=== PATIENT | male | born 1955 | race Caucasian/White ===

== ENCOUNTER 2017-07-27 09:40 | Emergency (ER) | payer MEDICAID ==
[~2017-07-27] VITALS: Ht 182.9 cm; Wt 68.0 kg
[~2017-07-27 09:40] MED LIST: ASPI-621 PO; ATOR20TA9 PO; CIPR500T87 PO; CLOP75TA PO; METO25TA35 PO/NG; TRAM50TA2 PO
[2017-07-27 09:42] VITALS: BP 136/92
[2017-07-27] MEDS ORDERED: DEXAMETHASONE 4 MG TABLET PO ONE (10:00)
[2017-07-27 10:28] LABS: HEMATOCRIT 46.6 % (39.2-51.8); HEMOGLOBIN 15.8 g/dL (13.7-18.0)
[2017-07-27 10:40] LABS: BLOOD UREA NITROGEN 9 mg/dL (7-18)
[2017-07-27] MEDS ORDERED: GABA300C10 PO (10:50)
[2017-07-27] MEDS ORDERED: CLOP75TA52 PO (10:50)
[2017-07-27] MEDS ORDERED: CARV12.543 PO (10:50)
[2017-07-27] MEDS ORDERED: LISI5TAB7 PO (10:50)
[2017-07-27] MEDS ORDERED: AMIT10TA PO (10:50)
[2017-07-27] MEDS ORDERED: OMNIPAQUE 350 MG/ML, 75ML BOTTLE ONE (11:13)
[2017-07-27] MEDS ORDERED: DEXAMETHASONE 4 MG TABLET ONE (11:19)
[2017-07-27] MEDS ORDERED: LIDOCAINE 1%, 10ML INFIL ONE (12:00)
== END 2017-07-27 12:41 | disposition home or self-care (01) ==
LOC: ED 12:00
DX: T78.3XXA Angioneurotic edema, initial encounter (principal); T46.4X5A Adverse effect of angiotensin-converting-enzyme inhibitors, initial encounter; I10 Essential (primary) hypertension; Y92.098 Other place in other non-institutional residence as the place of occurrence of the external cause
CPT/HCPCS: 36415; 70487; 80048; 85025; 99285; J3490; Q9967

== ENCOUNTER 2018-08-19 11:55 | Inpatient (IN) | payer MEDICAID ==
[~2018-08-19] VITALS: Ht 182.9 cm; Wt 66.5 kg
[~2018-08-19 11:55] MED LIST changes: +AMIT10TA PO; +CARV12.543 PO; +CLOP75TA52 PO; +GABA300C10 PO; +LISI5TAB7 PO
[2018-08-19] MEDS ORDERED: MORPHINE SULFATE 4 MG/ML, 1ML IVPush PRN (12:30)
[2018-08-19] MEDS ORDERED: ONDANSETRON 2MG/ML, 2ML IVPush ONE (12:30)
[2018-08-19 12:54] LABS: BASOPHILS # (AUTO) 0.02 x10^3/uL (0-0.1); BASOPHILS % (AUTO) 0 % (0-1); EOSINOPHILS # (AUTO) 0.27 x10^3/uL (0-0.4); EOSINOPHILS % (AUTO) 4 % (1-7); LYMPHOCYTES # (AUTO) 1.37 x10^3/uL (1-3.4); LYMPHOCYTES % (AUTO) 19 % (22-44); MD NO; MEAN CORPUSCULAR HEMOGLOBIN 32.7 pg (27.5-34.5); MEAN CORPUSCULAR HGB CONC 33.9 g/dL (33.2-36.2); MEAN CORPUSCULAR VOLUME 96.3 fL (81-97); MEAN PLATELET VOLUME 7.9 fL (7.4-10.4); MONOCYTES # (AUTO) 0.58 x10^3/uL (0.2-0.8); MONOCYTES % (AUTO) 8 % (2-9); NEUTROPHILS % (AUTO) 70 % (42-75); PLATELET COUNT 299 x10^3/uL (130-400); RED BLOOD COUNT 3.92 x10^6/uL (4.38-5.82); RED CELL DISTRIBUTION WIDTH 14.5 % (9.4-14.8)
[2018-08-19] MEDS ORDERED: MORPHINE SULFATE 4 MG/ML, 1ML ONE (12:58)
[2018-08-19] MEDS ORDERED: ONDANSETRON 2MG/ML, 2ML ONE (12:58)
[2018-08-19 13:03] LABS: ALANINE AMINOTRANSFERASE 25 U/L (12-78); ALBUMIN 3.7 g/dL (3.4-5.0); ANION GAP 8 mmol/L (5-15); CALCIUM 9.1 mg/dL (8.5-10.1); CHLORIDE 103 mmol/L (98-107); CREATININE 0.95 mg/dL (0.7-1.3)
[2018-08-19 13:07] LABS: ALKALINE PHOSPHATASE 82 U/L (45-117); BILIRUBIN,TOTAL 0.3 mg/dL (0.2-1.0); TOTAL PROTEIN 6.8 g/dL (6.4-8.2); TROPONIN I < 0.015 ng/mL (0.000-0.045)
[2018-08-19] MEDS ORDERED: methylPREDNISolone SOD SUCC 125 MG/2 ML ONE (13:24)
[2018-08-19] MEDS ORDERED: KETOROLAC 30 MG/1 ML ONE (13:24)
[2018-08-19] MEDS ORDERED: KETOROLAC 60 MG/2 ML IVPush ONE (13:30)
[2018-08-19] MEDS ORDERED: methylPREDNISolone SOD SUCC 125 MG/2 ML IVPush ONE (13:30)
[2018-08-19] MEDS ORDERED: ASPI-515 PO (14:55)
[2018-08-19] MEDS ORDERED: HYDR12.53 PO (14:57)
[2018-08-19] MEDS ORDERED: LOSA25TA6 PO (14:57)
[2018-08-19 15:06] LABS: TROPONIN I < 0.015 ng/mL (0.000-0.045)
[2018-08-19] MEDS ORDERED: DOCUSATE 100 MG CAPSULE PO PRN (17:00)
[2018-08-19] MEDS ORDERED: ONDANSETRON ODT 4 MG PO PRN (17:00)
[2018-08-19] MEDS: ENOXAPARIN 40 MG/0.4 ML SQ SCH (17:00)
[2018-08-19] MEDS ORDERED: NITROGLYCERIN 0.4 MG/SPRAY SL PRN (17:00)
[2018-08-19] MEDS ORDERED: methylPREDNISolone 4mg DOSE PACK PO SCH (17:00)
[2018-08-19] MEDS ORDERED: NITROGLYCERIN 0.4 MG BOTTLE (25 TABS) SL PRN (17:00)
[2018-08-19 17:34] VITALS: BP 158/85
[2018-08-19] MEDS ORDERED: methylPREDNISolone 4mg DOSE PACK ONE (17:46)
[2018-08-19] MEDS: METHOCARBAMOL 500 MG TABLET PO SCH (17:59)
[2018-08-19] MEDS: LIDODERM 5% PATCH TD SCH (17:59)
[2018-08-19 18:02] LABS: THYROID STIMULATING HORMONE 1.45 mIU/L (0.358-3.740)
[2018-08-19 18:03] LABS: HEMOGLOBIN A1C 5.7 % (4.2-6.3)
[2018-08-19 18:52] LABS: TROPONIN I < 0.015 ng/mL (0.000-0.045)
[2018-08-19 20:21] VITALS: BP 131/81
[2018-08-19] MEDS: GABAPENTIN 300 MG CAPSULE PO SCH (21:25)
[2018-08-19] MEDS: CARVEDILOL 12.5 MG TABLET PO SCH (21:25)
[2018-08-19] MEDS: ATORVASTATIN 20 MG TABLET PO SCH (21:36)
[2018-08-19] MEDS: ACETAMINOPHEN 325 MG TABLET PO PRN (21:45)
[2018-08-19] MEDS ORDERED: KETOROLAC 30 MG/1 ML IVPush PRN (23:00)
[2018-08-20] MEDS: METHOCARBAMOL 500 MG TABLET PO SCH ×3 (00:58→16:55)
[2018-08-20 01:00] VITALS: BP 117/71
[2018-08-20 05:15] LABS: BASOPHILS # (AUTO) 0.07 x10^3/uL (0-0.1); BASOPHILS % (AUTO) 1 % (0-1); EOSINOPHILS % (AUTO) 0 % (1-7); LYMPHOCYTES # (AUTO) 0.81 x10^3/uL (1-3.4); LYMPHOCYTES % (AUTO) 6 % (22-44); MD NO; MEAN CORPUSCULAR HEMOGLOBIN 33.1 pg (27.5-34.5); MEAN CORPUSCULAR HGB CONC 34.3 g/dL (33.2-36.2); MEAN CORPUSCULAR VOLUME 96.6 fL (81-97); MEAN PLATELET VOLUME 7.9 fL (7.4-10.4); MONOCYTES # (AUTO) 0.46 x10^3/uL (0.2-0.8); MONOCYTES % (AUTO) 4 % (2-9); NEUTROPHILS # (AUTO) 11.97 x10^3/uL (1.8-6.8); NEUTROPHILS % (AUTO) 90 % (42-75); PLATELET COUNT 270 x10^3/uL (130-400); RED BLOOD COUNT 3.69 x10^6/uL (4.38-5.82); RED CELL DISTRIBUTION WIDTH 14.3 % (9.4-14.8)
[2018-08-20 05:21] LABS: ANION GAP 7 mmol/L (5-15); CALCIUM 8.6 mg/dL (8.5-10.1); CHLORIDE 104 mmol/L (98-107); CREATININE 1.29 mg/dL (0.7-1.3)
[2018-08-20 05:24] LABS: CHOL/HDL RATIO 2.2; CHOLESTEROL, TOTAL 145 mg/dL (140-239); HDL CHOL % 46 % (26-37); HDL CHOLESTEROL (DIRECT) 66 mg/dL (40-60); LDL CHOLESTEROL,CALCULATED 65 mg/dL (54-169); TRIGLYCERIDES 69 mg/dL (50-200); VLDL CHOLESTEROL 14 mg/dL (0-25)
[2018-08-20] MEDS ORDERED: ASPIRIN 325 MG TABLET EC PO SCH (06:00)
[2018-08-20 07:48] VITALS: BP 134/81
[2018-08-20] MEDS: ACETAMINOPHEN 325 MG TABLET PO PRN (07:53)
[2018-08-20] MEDS: CARVEDILOL 12.5 MG TABLET PO SCH ×2 (09:20→21:29)
[2018-08-20] MEDS: LOSARTAN 25MG TABLET PO SCH (09:20)
[2018-08-20] MEDS: GABAPENTIN 300 MG CAPSULE PO SCH ×3 (09:20→21:29)
[2018-08-20] MEDS: HYDROCHLOROTHIAZIDE 12.5 MG CAPSULE PO SCH (09:20)
[2018-08-20 14:20] VITALS: BP 116/79
[2018-08-20] MEDS: LIDODERM 5% PATCH TD SCH (16:56)
[2018-08-20] MEDS: ENOXAPARIN 40 MG/0.4 ML SQ SCH (16:56)
[2018-08-20 19:35] VITALS: BP 129/85
[2018-08-20] MEDS: ATORVASTATIN 20 MG TABLET PO SCH (21:29)
[2018-08-20] MEDS: DIPHENHYDRAMINE 25 MG CAPSULE PO PRN (22:10)
[2018-08-20 23:49] LABS: PLATELET (PFA) 264 x10^3/uL (130-400)
[2018-08-21 00:25] VITALS: BP 145/87
[2018-08-21] MEDS: METHOCARBAMOL 500 MG TABLET PO SCH ×3 (06:27→22:07)
[2018-08-21 07:33] VITALS: BP 141/90
[2018-08-21] MEDS: GABAPENTIN 300 MG CAPSULE PO SCH ×3 (08:39→22:07)
[2018-08-21] MEDS: HYDROCHLOROTHIAZIDE 12.5 MG CAPSULE PO SCH (08:40)
[2018-08-21] MEDS: LOSARTAN 25MG TABLET PO SCH (08:40)
[2018-08-21] MEDS: CARVEDILOL 12.5 MG TABLET PO SCH ×2 (08:40→22:07)
[2018-08-21] MEDS ORDERED: ENOXAPARIN 40 MG/0.4 ML SQ SCH ×2 (09:00)
[2018-08-21] MEDS: ACETAMINOPHEN 325 MG TABLET PO PRN ×2 (12:26→22:09)
[2018-08-21 14:20] VITALS: BP 106/65
[2018-08-21] MEDS: LIDODERM 5% PATCH TD SCH (16:25)
[2018-08-21] MEDS: ATORVASTATIN 20 MG TABLET PO SCH (22:07)
[2018-08-21] MEDS: DIPHENHYDRAMINE 25 MG CAPSULE PO PRN (22:34)
[2018-08-22 00:49] VITALS: BP 126/71
[2018-08-22 06:00] LABS: BASOPHILS # (AUTO) 0.12 x10^3/uL (0-0.1); BASOPHILS % (AUTO) 1 % (0-1); EOSINOPHILS # (AUTO) 0.08 x10^3/uL (0-0.4); EOSINOPHILS % (AUTO) 1 % (1-7); LYMPHOCYTES # (AUTO) 1.87 x10^3/uL (1-3.4); LYMPHOCYTES % (AUTO) 19 % (22-44); MD NO; MEAN CORPUSCULAR HEMOGLOBIN 32.7 pg (27.5-34.5); MEAN CORPUSCULAR HGB CONC 33.5 g/dL (33.2-36.2); MEAN CORPUSCULAR VOLUME 97.5 fL (81-97); MEAN PLATELET VOLUME 8.3 fL (7.4-10.4); MONOCYTES # (AUTO) 0.73 x10^3/uL (0.2-0.8); MONOCYTES % (AUTO) 7 % (2-9); NEUTROPHILS # (AUTO) 7.19 x10^3/uL (1.8-6.8); NEUTROPHILS % (AUTO) 72 % (42-75); PLATELET COUNT 311 x10^3/uL (130-400); RED BLOOD COUNT 4.14 x10^6/uL (4.38-5.82); RED CELL DISTRIBUTION WIDTH 14.8 % (9.4-14.8)
[2018-08-22] MEDS: METHOCARBAMOL 500 MG TABLET PO SCH ×3 (06:07→22:16)
[2018-08-22 06:53] VITALS: BP 125/83
[2018-08-22] MEDS: GABAPENTIN 300 MG CAPSULE PO SCH ×3 (08:39→20:26)
[2018-08-22] MEDS: CARVEDILOL 12.5 MG TABLET PO SCH ×2 (08:39→20:26)
[2018-08-22] MEDS: HYDROCHLOROTHIAZIDE 12.5 MG CAPSULE PO SCH (08:39)
[2018-08-22] MEDS: LOSARTAN 25MG TABLET PO SCH (08:40)
[2018-08-22 12:33] VITALS: BP 111/78
[2018-08-22] MEDS: LIDODERM 5% PATCH TD SCH (16:47)
[2018-08-22 17:00] VITALS: BP 109/85
[2018-08-22 18:35] VITALS: BP 103/78
[2018-08-22 20:25] VITALS: BP 117/81
[2018-08-22] MEDS: ATORVASTATIN 20 MG TABLET PO SCH (20:27)
[2018-08-22] MEDS: ACETAMINOPHEN 325 MG TABLET PO PRN (22:16)
[2018-08-23 02:13] VITALS: BP 97/64
[2018-08-23] MEDS: METHOCARBAMOL 500 MG TABLET PO SCH ×3 (04:59→21:42)
[2018-08-23 06:49] VITALS: BP 121/75
[2018-08-23] MEDS: GABAPENTIN 300 MG CAPSULE PO SCH ×3 (08:37→21:43)
[2018-08-23] MEDS: ACETAMINOPHEN 325 MG TABLET PO PRN (08:37)
[2018-08-23] MEDS: LOSARTAN 25MG TABLET PO SCH (08:38)
[2018-08-23] MEDS: CARVEDILOL 12.5 MG TABLET PO SCH ×2 (08:38→21:43)
[2018-08-23] MEDS: HYDROCHLOROTHIAZIDE 12.5 MG CAPSULE PO SCH (08:38)
[2018-08-23 12:48] VITALS: BP 105/70
[2018-08-23] MEDS ORDERED: FENTANYL PF 250 MCG/5ML ONE (16:26)
[2018-08-23] MEDS ORDERED: MIDAZOLAM 1 MG/ML, 2ML ONE (16:26)
[2018-08-23] MEDS ORDERED: DEXAMETHASONE 4 MG/ML, 1ML ONE ×2 (16:27→17:42)
[2018-08-23] MEDS ORDERED: ONDANSETRON 2MG/ML, 2ML ONE (16:27)
[2018-08-23] MEDS ORDERED: BACITRACIN 50,000 UNIT ONE (16:38)
[2018-08-23] MEDS ORDERED: BUPIVACAINE/PF 0.5% ONE (16:38)
[2018-08-23] MEDS ORDERED: EPINEPHRINE 1 MG/ML, 1ML ONE (16:38)
[2018-08-23] MEDS ORDERED: ONDANSETRON ODT 8 MG PO PRN (17:00)
[2018-08-23] MEDS ORDERED: PROMETHAZINE 12.5 MG SUPP PR PRN (17:00)
[2018-08-23] MEDS ORDERED: DIAZEPAM 5 MG/ML, 2ML IVPush PRN (17:00)
[2018-08-23] MEDS ORDERED: EPHEDRINE 50 MG/ML, 1ML IVPush PRN (17:00)
[2018-08-23] MEDS ORDERED: HYDROmorphone 1 MG/ML, 1ML IV PRN (17:00)
[2018-08-23] MEDS ORDERED: ONDANSETRON 2MG/ML, 2ML IV PRN ×2 (17:00→22:30)
[2018-08-23] MEDS ORDERED: hydrALAzine 20 MG/ML, 1ML IV PRN (17:00)
[2018-08-23] MEDS: LIDODERM 5% PATCH TD SCH (17:00)
[2018-08-23] MEDS ORDERED: ACETAMINOPHEN 325 MG TABLET PO PRN (17:00)
[2018-08-23] MEDS ORDERED: PROMETHAZINE 25 MG/ML, 1ML IV PRN (17:00)
[2018-08-23] MEDS ORDERED: MIDAZOLAM 1 MG/ML, 2ML IV PRN (17:00)
[2018-08-23] MEDS ORDERED: OXYcodone 5 MG/5 ML ORAL.SOL UDC PO PRN (17:00)
[2018-08-23] MEDS ORDERED: ALBUTEROL SULFATE 2.5 MG/3 ML NPPB PRN (17:00)
[2018-08-23] MEDS ORDERED: FENTANYL PF 100 MCG/2ML IV PRN (17:00)
[2018-08-23] MEDS ORDERED: HALOPERIDOL 5 MG/ML IV PRN (17:00)
[2018-08-23] MEDS ORDERED: LABETALOL 5MG/ML, 20ML IV PRN ×2 (17:00→22:30)
[2018-08-23] MEDS ORDERED: MEPERIDINE/PF 25MG/0.5ML IVPush PRN (17:00)
[2018-08-23] MEDS ORDERED: SUCCINYLCHOLINE 20 MG/ML, 10ML ONE (17:42)
[2018-08-23] MEDS ORDERED: ROCURONIUM 10MG/ML,5ML ONE (17:42)
[2018-08-23] MEDS ORDERED: PROPOFOL 10 MG/ML, 20ML ONE (17:42)
[2018-08-23] MEDS ORDERED: VASOPRESSIN 20 UNIT/ML, 1ML ONE (17:43)
[2018-08-23] MEDS ORDERED: EPHEDRINE 50 MG/ML, 1ML ONE (17:43)
[2018-08-23] MEDS: MORPHINE SULFATE 4 MG/ML, 1ML IVPush PRN ×2 (19:45→20:00)
[2018-08-23] MEDS ORDERED: ACETAMINOPHEN 650 MG/20.3 ML UDC ONE (19:46)
[2018-08-23] MEDS ORDERED: MORPHINE SULFATE 4 MG/ML, 1ML ONE (19:46)
[2018-08-23] MEDS ORDERED: ACETAMINOPHEN 325 MG TABLET ONE (19:47)
[2018-08-23 21:05] VITALS: BP 140/84
[2018-08-23] MEDS: ATORVASTATIN 20 MG TABLET PO SCH (21:43)
[2018-08-23] MEDS ORDERED: PROMETHAZINE 25 MG/ML, 1ML IM PRN (22:30)
[2018-08-23] MEDS ORDERED: METHOCARBAMOL 1,000 MG in DEXTROSE 5% 100 ML IV ONE (22:30)
[2018-08-23] MEDS ORDERED: METHOCARBAMOL 750 MG TABLET PO SCH (22:30)
[2018-08-23] MEDS ORDERED: BISACODYL 10 MG SUPP PR PRN (22:30)
[2018-08-23] MEDS ORDERED: MAGNESIUM HYDROXIDE 8%, 30ML UDC PO PRN (22:30)
[2018-08-24 00:06] VITALS: BP 105/65
[2018-08-24] MEDS ORDERED: METHOCARBAMOL 1,000 MG in DEXTROSE 5% 100 ML IV ONE (01:00)
[2018-08-24] MEDS: CEFAZOLIN PMX 1GM/50ML 50 ML IVPB SCH ×2 (01:22→07:40)
[2018-08-24 04:11] VITALS: BP 100/62
[2018-08-24] MEDS ORDERED: METHOCARBAMOL 750 MG in DEXTROSE 5% 100 ML IV SCH (06:30)
[2018-08-24 07:13] VITALS: BP 103/70
[2018-08-24] MEDS: HYDROcodone/APAP 10/325 MG TABLET PO PRN ×2 (07:41→12:13)
[2018-08-24] MEDS: HYDROCHLOROTHIAZIDE 12.5 MG CAPSULE PO SCH (07:42)
[2018-08-24] MEDS: LOSARTAN 25MG TABLET PO SCH (07:42)
[2018-08-24] MEDS: CARVEDILOL 12.5 MG TABLET PO SCH (07:42)
[2018-08-24] MEDS: GABAPENTIN 300 MG CAPSULE PO SCH (07:45)
[2018-08-24 07:50] VITALS: BP 134/79
[2018-08-24] MEDS ORDERED: SENNA/DOCUSATE TABLET PO SCH (09:00)
[2018-08-24] MEDS ORDERED: METH750T2 PO (10:31)
[2018-08-24] MEDS ORDERED: ACET325T14 PO (10:31)
[2018-08-24 12:05] VITALS: BP 95/51
[2018-08-26] MEDS ORDERED: METHOCARBAMOL 750 MG TABLET PO SCH (08:00)
== END 2018-08-24 12:55 | disposition home or self-care (01) | DRG 519 ==
LOC: ED 14:00 → INTOOBSV 16:08 → EDIP 16:08 → 5SO 17:27 → 4NOR 08-22 17:20 → OBSVTOIN 08-24 11:13 → DCLOUNGE 08-24 12:37
PROVIDERS: ADMIT Hospitalist; ATTEND Hospitalist
PROC: 0SB20ZZ Excision of Lumbar Vertebral Disc, Open Approach (ICD-10-PCS; principal; 2018-08-23 14:30)
DX: M51.16 Intervertebral disc disorders with radiculopathy, lumbar region (principal); E46 Unspecified protein-calorie malnutrition; E87.1 Hypo-osmolality and hyponatremia; Z68.1 Body mass index [BMI] 19.9 or less, adult; D64.9 Anemia, unspecified; E16.2 Hypoglycemia, unspecified; E78.5 Hyperlipidemia, unspecified; G89.29 Other chronic pain; F17.210 Nicotine dependence, cigarettes, uncomplicated; G62.9 Polyneuropathy, unspecified; I10 Essential (primary) hypertension; I25.10 Atherosclerotic heart disease of native coronary artery without angina pectoris; M19.90 Unspecified osteoarthritis, unspecified site; M47.26 Other spondylosis with radiculopathy, lumbar region; Z66 Do not resuscitate; Z79.01 Long term (current) use of anticoagulants; I25.2 Old myocardial infarction; Z86.718 Personal history of other venous thrombosis and embolism; Z95.1 Presence of aortocoronary bypass graft; Z79.899 Other long term (current) drug therapy
CPT/HCPCS: 36415; 71045; 72100; 72131; 72148; 80048; 80053; 80061; 82962; 83036; 83735; 84443; 84484; 85014; 85025; 85049; 85576; 93005; 93306; 96374; 96375; 99285; G0378; J0171; J0690; J1100; J1650; J1885; J2250; J2405; J2704; J3010; J3360; J3490; J7509; J0330; J2800; J2930; Q0163

== ENCOUNTER 2019-01-01 12:34 | Emergency (ER) | payer MEDICAID ==
[~2019-01-01] VITALS: Ht 182.9 cm; Wt 73.3 kg
[~2019-01-01 12:34] MED LIST changes: +ACET325T14 PO; +ASPI-515 PO; -ASPI-621 PO; +ASPI81TA45 PO; +ATOR20TA37 PO; -ATOR20TA9 PO; +HYDR12.517 PO; +LOSA25TA25 PO; +METH750T2 PO
[2019-01-01 12:41] VITALS: BP 157/90
== END 2019-01-01 15:27 | disposition home or self-care (01) ==
LOC: ED 15:02
DX: L76.32 Postprocedural hematoma of skin and subcutaneous tissue following other procedure (principal); I25.2 Old myocardial infarction; I10 Essential (primary) hypertension; Z86.718 Personal history of other venous thrombosis and embolism
CPT/HCPCS: 99281